=== PATIENT | female | born 1955 | race Caucasian/White ===

== ENCOUNTER 2023-10-04 11:02 | Emergency (ER) | payer MEDICARE, SELFPAY ==
[2023-10-04 11:08] VITALS: BP 134/90; PULSE 115; RESP 28; TEMP 36.3; O2SAT 97; BMI 20.8
--- NOTE | 2023-10-04 11:37 | ED_ITS ---
HPI - General Adult General Chief complaint: Shortness of Breath/Dyspnea Stated complaint: Shortness of breath Time Seen by Provider: 10/04/23 11:04 History of Present Illness HPI narrative: This 68-year-old female comes in with primary complaint of anxiety and needing help. She states that she has been without a home for a long time and is been staying in motels and in her car. She does not have a primary physician and states that she has not been taking her medications. She does have a history of COPD because of smoking history. She has also had 2 open heart surgeries. She arrives here with some tachycardia and increased respiratory where 8 which she mainly attributes to anxiety. She does report some chest tightness. She is able to speak in complete sentences. Related Data Home Medications ?Medication ?Instructions ?Recorded ?Confirmed clonazepam 1 mg tablet 1 mg PO BID PRN 06/09/22 06/09/22 nitroglycerin 0.4 mg sublingual 0.4 mg sublingual Q5-15M PRN chest 06/09/22 10/04/23 tablet pain warfarin 5 mg tablet 7.5 mg PO 06/09/22 06/09/22 albuterol sulfate 2.5 mg/3 mL 2.5 mg inhalation Q6H 06/10/22 10/04/23 (0.083 %) solution for nebulization aspirin 81 mg chewable tablet 81 mg PO QDAY 06/10/22 10/04/23 (Aspirin Childrens) cholecalciferol (vitamin D3) 125 125 mcg PO QDAY 06/10/22 06/10/22 mcg (5,000 unit) tablet iron,carbonyl 65 mg-vitamin C 125 1 tab PO QDAY 06/10/22 06/10/22 mg tablet,delayed release (Vitron-C) pyridoxine (vitamin B6) 100 mg 50 mg PO QDAY 06/10/22 06/10/22 tablet tizanidine 2 mg tablet 2 mg PO BID PRN muscle spasticity 06/10/22 10/04/23 Previous Rx's ?Medication ?Instructions ?Recorded atorvastatin 40 mg tablet 40 mg PO QDAY #90 tabs 06/10/22 fluoxetine 20 mg capsule 20 mg PO QAM #90 caps 06/10/22 fluoxetine 40 mg capsule 40 mg PO QDAY #90 caps 06/10/22 fluticasone 250 mcg-salmeterol 50 1 inh inhalation BID #60 ea 06/10/22 mcg/dose blistr powdr for inhalation (Advair Diskus) lisinopril 5 mg tablet 5 mg PO QDAY #90 tabs 06/10/22 metoprolol succinate 50 mg 50 mg PO QDAY #90 tabs 06/10/22 tablet,extended release 24 hr trazodone 100 mg tablet 200 mg (2 x 100 mg) PO QHS PRN 06/10/22 sleep #180 tabs umeclidinium 62.5 mcg/actuation 1 inh inhalation QDAY #30 ea 06/10/22 blister powder for inhalation (Incruse Ellipta) Allergies Allergy/AdvReac Type Severity Reaction Status Date / Time morphine Allergy Mild Anaphylaxis Verified 06/10/22 10:34 adhesive Allergy rash Verified 07/23/22 13:44 Aveda Hair Dye Allergy Anaphylaxis Uncoded 07/23/22 13:44 dilaudid Allergy itching Uncoded 07/23/22 13:44 and anxiety Meloxicam Allergy Anxiety Uncoded 07/23/22 13:44 and Palpitations nickel Allergy Rash Uncoded 07/23/22 13:44 Percocet Allergy Anxiety Uncoded 07/23/22 13:44 Darvon AdvReac Pacing, Uncoded 07/23/22 13:44 heart racing oxycodone-acetaminphen AdvReac Uncoded 07/23/22 14:15 Review of Systems Status of ROS: Reports: 10 or more systems reviewed and unremarkable except as noted in History and below Narrative: Constitutional: No fevers, no weight gain or loss. Eyes: No discharge. No vision changes. HENT: No congestion, no sore throat, no ear pain. Cardiovascular: No palpitations. Respiratory: Wheezes. Gastrointestinal: No abdominal pain, no vomiting, no diarrhea. Genitourinary: No dysuria, no hematuria. Musculoskeletal: Normal range of motion. Skin: No rashes, no pruritis. Neurological: No dizziness, weakness, sensory change, speech change. Endo/Heme/Allergies: No bruising or bleeding. No polydipsia. Pysch: no suicidality, no insomnia. She reports lots of anxiety. All other systems reviewed and are negative. [facility] Medical History (Updated 10/04/23 @ 13:29 by Magdaleno Elliott MD) Chronic systolic heart failure ?I50.22 - Chronic systolic (congestive) heart failure (ICD-10) Abnormal CT scan, bladder ?R93.41 - Abnormal radiologic findings on diagnostic imaging of renal pelvis, ureter, or bladder (ICD-10) Emphysema of lung ?J43.9 - Emphysema, unspecified (ICD-10) LBBB (left bundle branch block) ?I44.7 - Left bundle-branch block, unspecified (ICD-10) Hyponatremia ?E87.1 - Hypo-osmolality and hyponatremia (ICD-10) Chronic pain syndrome ?G89.4 - Chronic pain syndrome (ICD-10) Carcinoma in situ (CIS) of female genital organ ?D07.30 - Carcinoma in situ of unspecified female genital organs (ICD-10) Allergic rhinitis ?J30.9 - Allergic rhinitis, unspecified (ICD-10) History of non-ST elevation myocardial infarction (NSTEMI) ?I25.2 - Old myocardial infarction (ICD-10) Severe aortic insufficiency ?I35.1 - Nonrheumatic aortic (valve) insufficiency (ICD-10) Mitral valve disease, rheumatic ?I05.9 - Rheumatic mitral valve disease, unspecified (ICD-10) Esophageal reflux ?K21.9 - Gastro-esophageal reflux disease without esophagitis (ICD-10) Frequent falls ?R29.6 - Repeated falls (ICD-10) Major depression, recurrent ?F33.9 - Major depressive disorder, recurrent, unspecified (ICD-10) CVA (cerebral vascular accident) ?I63.9 - Cerebral infarction, unspecified (ICD-10) PTSD (post-traumatic stress disorder) ?F43.10 - Post-traumatic stress disorder, unspecified (ICD-10) Insomnia ?G47.00 - Insomnia, unspecified (ICD-10) Hypertension ?I10 - Essential (primary) hypertension (ICD-10) COPD (chronic obstructive pulmonary disease) ?J44.9 - Chronic obstructive pulmonary disease, unspecified (ICD-10) AVERY (generalized anxiety disorder) ?F41.1 - Generalized anxiety disorder (ICD-10) Hyperlipidemia ?E78.5 - Hyperlipidemia, unspecified (ICD-10) Surgical History (Updated 07/23/22 @ 13:24 by Monique Zhang) History of bladder suspension procedure ?Z98.890 - Other specified postprocedural states (ICD-10) ?Z87.448 - Personal history of other diseases of urinary system (ICD-10) Hx of colonoscopy ?Z98.890 - Other specified postprocedural states (ICD-10) Hx of esophagogastroduodenoscopy ?Z98.890 - Other specified postprocedural states (ICD-10) History of foot surgery ?Z98.890 - Other specified postprocedural states (ICD-10) History of knee surgery ?Z98.890 - Other specified postprocedural states (ICD-10) H/O mitral valve replacement ?Z95.2 - Presence of prosthetic heart valve (ICD-10) H/O aortic valve replacement ?Z95.2 - Presence of prosthetic heart valve (ICD-10) History of hysterectomy ?Z90.710 - Acquired absence of both cervix and uterus (ICD-10) Family History (Updated 07/23/22 @ 14:14 by Monique Zhang) Father Heart disease Stroke Alcohol dependence Diabetes High blood pressure Brother Heart disease Alcohol dependence Diabetes Psychiatric illness Grandmother Stroke Mother Ovarian cancer Arthritis Hyperlipidemia Rheumatic fever COPD (chronic obstructive pulmonary disease) Lung cancer Maternal Grandmother Stroke Diabetes Paternal Grandmother Alcohol dependence Breast cancer Paternal Grandfather Alcohol dependence Diabetes Sister Alcohol dependence Diabetes Rheumatoid arthritis High blood pressure Depression Thyroid disease Social History (Updated 06/14/22 @ 20:46 by Judd Okeefe MD) Narrative: , two children, unemployed, half pack per day smoker no ETOH Smoking Status: Current every day smoker How often do you have a drink containing alcohol: never AUDIT-C Alcohol total score: 0 Non-prescribed substance use: marijuana (any form) Non-prescribed substance use details: edibles Little interest or pleasure in doing things: nearly every day Feeling down, depressed, or hopeless: nearly every day service: No Exam Narrative: Exam Narrative: Constitutional: Well-developed, well-nourished, no acute distress. HEENT: Normocephalic, atraumatic. Neck: Normal range of motion. Nontender. Supple. Heart: Regular. No murmurs. Normal rate. Intact distal pulses. Lungs: Bilateral inspiratory and expiratory wheezes. No use of accessory muscles for breathing. Abdomen: Normal bowel sounds. Nontender. No rebound tenderness. Genitalia: Deferred. Back: No midline tenderness. Normal range of motion. Extremities: Normal range of motion. No injury. Skin: Intact. No rash. Warm. No erythema or pallor. Neurologic: No altered sensation. No weakness. Alert and oriented. Psychiatric: No suicidality. Nursing notes and vitals signs are reviewed. Const: Vital Signs, click to edit/add: Vital Signs - 24 hr 10/04/23 11:08 Temperature 97.4 F L Pulse Rate [Left P ulse Oximeter] 115 H Respiratory Rate 28 H Blood Pressure [Ri ght Upper Arm] 134/90 H Pulse Oximetry 97 Oxygen Delivery Me thod Room Air Course Vital Signs Vital signs: Initial Vital Signs Temperature 97.4 F L 10/04/23 11:08 Temperature Source Temporal Artery Scan 10/04/23 11:08 Pulse Rate 115 H 10/04/23 11:08 Respiratory Rate 28 H 10/04/23 11:08 Blood Pressure 134/90 H 10/04/23 11:08 Blood Pressure Mean 104 10/04/23 11:08 Blood Pressure Position Sitting 10/04/23 11:08 Pulse Oximetry 97 10/04/23 11:08 Oxygen Delivery Method Room Air 10/04/23 11:08 Vital Signs Temperature 97.4 F L 10/04/23 11:08 Pulse Rate 115 H 10/04/23 11:08 Respiratory Rate 28 H 10/04/23 11:08 Blood Pressure 134/90 H 10/04/23 11:08 Pulse Oximetry 97 10/04/23 11:08 Oxygen Delivery Method Room Air 10/04/23 11:08 Temperature 97.4 F L 10/04/23 11:08 Pulse Rate 115 H 10/04/23 11:08 Respiratory Rate 28 H 10/04/23 11:08 Blood Pressure 134/90 H 10/04/23 11:08 Pulse Oximetry 97 10/04/23 11:08 Oxygen Delivery Method Room Air 10/04/23 11:08 Medications Administered Medications: Discontinued Medications Generic Name Dose Route Start Last Admin Trade Name Freq PRN Reason Stop Dose Admin Albuterol/Ipratropium 1 neb 10/04/23 11:35 10/04/23 11:58 Iprat-Albut 0.5-2.5 Mg/3 Ml Neb IH 10/04/23 11:36 1 neb ONCE ONE Administration Dexamethasone 10 mg 10/04/23 11:35 10/04/23 11:58 Dexamethasone 10 Mg/Ml Inj PO 10/04/23 11:36 10 mg ONCE ONE Administration Lorazepam 1 mg 10/04/23 11:35 10/04/23 11:58 Lorazepam 1 Mg Tablet PO 10/04/23 11:36 1 mg ONCE ONE Administration Medical Decision Making MDM Narrative Medical decision making narrative: This patient comes in stating that she needs help and repeated the reports that she is homeless. She has history of depression and anxiety and arrives with lots of anxiety. She has not taken any of her medications. She does have history of heart and lung disease. I recommended lab and imaging studies which the patient was not so willing to cooperate with stating that she has been into emergency department in the past and gets a large bill that she is unable to pay. It does seem that her primary current issue is anxiety. She does have bilateral wheezes on auscultation. She is able to speak in complete sentences. She is maintaining sufficient oximetry but does have some tachycardia and tachypnea. I ordered a DuoNeb and dexamethasone and a mg of Ativan orally. I also ordered a social worker palliative care consult. It was noted that the patient is no longer in her room and she no longer has her belongings there. She has left without any further treatment or discussion. Discharge Plan Discharge Clinical Impression: Anxiety Patient Disposition: Home, Self-Care Condition: Unchanged Prescriptions: No Action clonazepam 1 mg tablet 1 mg PO BID PRN Patient Comments: TAKE 1 TABLET BY MOUTH TWICE A DAY NEEDED warfarin 5 mg tablet 7.5 mg PO Protocol: Dose Management Condition: Wednesday Dose/Route: 7.5 mg Instruction: 1.5 x 5 mg tablets Condition: Wednesday Dose/Route: 7.5 mg Instruction: 1.5 x 5 mg tablets Condition: Wednesday Dose/Route: 7.5 mg Instruction: 1.5 x 5 mg tablets Condition: Wednesday Dose/Route: 7.5 mg Instruction: 1.5 x 5 mg tablets Condition: Dose/Route: 7.5 mg Instruction: 1.5 x 5 mg tablets Condition: Wednesday Dose/Route: 7.5 mg Instruction: 1.5 x 5 mg tablets Condition: Wednesday Dose/Route: 7.5 mg Instruction: 1.5 x 5 mg tablets Protocol Text: Adjustment Start Date: Wednesday06/16/22 INR Value: 1.8 INR Date: 06/10/22 Recheck Date: 07/28/22 Patient Comments: TAKE 1.5 TABLETS BY MOUTH EVERY DAY OR DIRECTED BY ANTICOAGULATION DEPARTMENT - THIS IS YOUR BLOOD THINNER nitroglycerin 0.4 mg tablet, sublingual 0.4 mg sublingual Q5-15M PRN (Reason: chest pain) Patient Comments: TAKE 1 TABLET (0.4MG) UNDER TONGUE EVERY 5 MINUTES NEEDED FOR CHEST PAIN albuterol sulfate 2.5 mg /3 mL (0.083 %) solution for nebulization 2.5 mg inhalation Q6H aspirin [Aspirin Childrens] 81 mg tablet,chewable 81 mg PO QDAY Vitron-C 65 mg iron- 125 mg tablet,delayed release (DR/EC) 1 tab PO QDAY tizanidine 2 mg tablet 2 mg PO BID PRN (Reason: muscle spasticity) Patient Comments: TAKE 1 TABLET BY MOUTH EVERY 8 HOURS NEEDED FOR MUSCLE SPASM. pyridoxine (vitamin B6) 100 mg tablet 50 mg PO QDAY cholecalciferol (vitamin D3) 125 mcg (5,000 unit) tablet 125 mcg PO QDAY atorvastatin 40 mg tablet 40 mg PO QDAY Qty: 90 1RF fluoxetine 20 mg capsule 20 mg PO QAM Qty: 90 1RF Rx Instructions: Total daily dose 60 mg fluoxetine 40 mg capsule 40 mg PO QDAY Qty: 90 1RF Rx Instructions: Total daily dose 60 mg fluticasone propion-salmeterol [Advair Diskus] 250-50 mcg/dose blister with device 1 inh inhalation BID Qty: 60 5RF lisinopril 5 mg tablet 5 mg PO QDAY Qty: 90 1RF metoprolol succinate 50 mg tablet extended release 24 hr 50 mg PO QDAY Qty: 90 1RF Incruse Ellipta 62.5 mcg/actuation blister with device 1 inh inhalation QDAY Qty: 30 5RF trazodone 100 mg tablet 200 mg PO QHS PRN (Reason: sleep) Qty: 180 1RF Follow Up/Referrals: Judd Okeefe MD [Primary Care Provider] - Stand Alone Forms: My[facility] Info Instructions
[2023-10-04] MEDS: dexAMETHasone 10 MG/ML inj PO (11:58)
[2023-10-04] MEDS: LORazepam 1 MG TABLET PO (11:58)
[2023-10-04] MEDS: IPRAT-ALBUT 0.5-2.5 MG/3 ML NEB 1 NEB IH (11:58)
--- NOTE | 2023-10-04 13:36 | ED.NURSE ---
Nursing went to go check on patient at 1305. Patient not in ED room, all belongings taken as well. Nurse checked bathroom and surrounding area. Called credit front office developer (patient arrived through) and they reported patient walked out of the credit front office developer doors 5 minutes prior. Physician notified.
== END 2023-10-04 13:00 | disposition home or self-care (01) ==
PROVIDERS: Emergency Provider Emergency Medicine Emergency Medical Services; PCP Family Medicine
DX: F41.9 Anxiety disorder, unspecified (principal); Z59.00 Homelessness unspecified
CPT/HCPCS: 94640; 99284; A9270; J1100